=== PATIENT | female | born 1960 | race Caucasian/White ===

== ENCOUNTER 2017-10-10 15:46 | Inpatient (IN) | payer MEDICARE, OTHER ==
[2017-10-10] MEDS ORDERED: 0.9 % SOD CHL for STERILE FIELD 10 ML DISP.SYRIN. (16:11)
[2017-10-10] MEDS: HYDROcodone/APAP 5/325MG 1 TAB TABLET PO (16:13)
[2017-10-10 16:25] LABS: ADD MAN DIFF? NO
[2017-10-10 16:28] LABS: BASO % 1 % (0-3); EOS # 0.2 x10^3/uL (0.0-0.7); EOS % 2 % (0-3); HEMOGLOBIN 12.8 g/dL (12.0-15.5); LYMPH # 1.7 x10^3/uL (1.0-4.8); LYMPH % 24 % (24-48); MEAN CORPUSCULAR HEMOGLOBIN 33 pg (25-35); MEAN CORPUSCULAR HGB CONC 35 g/dL (31-37); MEAN CORPUSCULAR VOLUME 94 fL (79-100); MONO # 0.8 x10^3/uL (0.0-1.1); MONO % 10 % (0-9); NEUT # 4.6 x10^3uL (1.8-7.7); NEUT % 63 % (31-73); PLATELET COUNT 269 x10^3/uL (140-400); RED BLOOD COUNT 3.93 x10^6/uL (3.50-5.40); RED CELL DISTRIBUTION WIDTH 13.9 % (11.5-14.5); WHITE BLOOD COUNT 7.3 x10^3/uL (4.0-11.0)
[2017-10-10] MEDS: PROMETHAZINE 12.5 MG in IV NORMAL SALINE 50ML 50 ML IV (16:35)
[2017-10-10 16:43] LABS: PARTIAL THROMBOPLASTIN TIME 25 SEC (24-38); PROTHROMBIN TIME PATIENT 12.2 SEC (11.7-14.0)
[2017-10-10] MEDS: IPRATRPIUM/ALBUTEROL 0.5/2.5MG 3 ML NEBU. NEB (16:48)
[2017-10-10 16:53] LABS: ANION GAP 7 (6-14); BLOOD UREA NITROGEN 14 mg/dL (7-20); BUN/CREATININE RATIO 14 (6-20); CALCIUM 9.5 mg/dL (8.5-10.1); CARBON DIOXIDE 32 mmol/L (21-32); CHLORIDE 98 mmol/L (98-107); GFR 56.9; GLUCOSE 159 mg/dL (70-99); POTASSIUM 4.1 mmol/L (3.5-5.1); SODIUM 137 mmol/L (136-145)
[2017-10-10 16:59] LABS: ALBUMIN 3.3 g/dL (3.4-5.0); ALBUMIN/GLOBULIN RATIO 0.9 (1.0-1.7); ALK PHOS 85 U/L (46-116); ALT (SGPT) 28 U/L (14-59); AST (SGOT) 24 U/L (15-37); LIPASE 134 U/L (73-393); TOTAL BILIRUBIN 0.3 mg/dL (0.2-1.0); TOTAL PROTEIN 6.9 g/dL (6.4-8.2)
[2017-10-10 17:02] LABS: TROPONINI < 0.017 ng/mL (0.000-0.055)
[2017-10-10] MEDS: MORPHINE SULFATE 10 MG/ML VIAL. IV (17:52)
[2017-10-10] MEDS: MORPHINE SULFATE 4 MG/ML DISP.SYRIN. IV ×2 (18:58→22:51)
[2017-10-10 20:42] LABS: TROPONINI < 0.017 ng/mL (0.000-0.055)
[2017-10-10] MEDS ORDERED: ALPRAZolam 1 MG TABLET PO (23:00)
[2017-10-10] MEDS ORDERED: NON FORMULARY ITEM (Albuterol Sulfate (Proair Respiclick) 1 PUFF) IH (23:00)
[2017-10-10] MEDS ORDERED: ACETAMINOPHEN 325 MG TABLET. PO (23:00)
[2017-10-10] MEDS ORDERED: NON FORMULARY ITEM (Melatonin 3 MG) PO (23:00)
[2017-10-11] MEDS ORDERED: PROMETHAZINE 25 MG in IV DEXTROSE 5% 50 ML IV (00:15)
[2017-10-11 00:16] LABS: TROPONINI < 0.017 ng/mL (0.000-0.055)
[2017-10-11] MEDS ORDERED: guaiFENesin DM 200MG/20MG 10 ML SYRUP PO (00:30)
[2017-10-11] MEDS ORDERED: MAG HYDROX/ALUMINUM HYD/SIMETH 30 ML ORAL.SUSP PO (00:30)
[2017-10-11] MEDS: PROMETHAZINE 25 MG SUPP.RECT. PR ×2 (00:59→11:26)
[2017-10-11] MEDS: MORPHINE SULFATE 4 MG/ML DISP.SYRIN. IV ×3 (00:59→12:59)
[2017-10-11] MEDS: lamoTRIgine 100 MG TABLET. PO ×2 (01:49→13:49)
[2017-10-11] MEDS: PRAZOSIN 1 MG CAPSULE. PO (01:49)
[2017-10-11] MEDS: traZODone 100 MG TABLET. PO (01:49)
[2017-10-11] MEDS: DOCUSATE SODIUM 100 MG CAPSULE. PO (01:50)
[2017-10-11] MEDS: DULoxetine HCL 30 MG CAPSULE.DR PO (01:50)
[2017-10-11] MEDS: SENNOSIDES/DOCUSATE 8.6/50MG TABLET. PO ×2 (01:50→09:00)
[2017-10-11] MEDS: GABAPENTIN 400 MG CAPSULE. PO ×3 (01:50→13:49)
[2017-10-11] MEDS: MECLIZINE HCL 12.5 MG TABLET. PO (01:50)
[2017-10-11] MEDS: LURASIDONE 40 MG TABLET. PO ×2 (01:51→13:49)
[2017-10-11] MEDS ORDERED: DEXTROSE 50% 25 GM / 50ML DISP.SYRIN. IV ×2 (04:15→09:15)
[2017-10-11 06:22] LABS: ADD MAN DIFF? NO
[2017-10-11 06:43] LABS: ANION GAP 9 (6-14); BLOOD UREA NITROGEN 15 mg/dL (7-20); CALCIUM 8.9 mg/dL (8.5-10.1); CARBON DIOXIDE 30 mmol/L (21-32); CHLORIDE 100 mmol/L (98-107); CREATININE 0.9 mg/dL (0.6-1.0); GFR 64.3; GLUCOSE 136 mg/dL (70-99); POTASSIUM 4.3 mmol/L (3.5-5.1); SODIUM 139 mmol/L (136-145)
[2017-10-11 06:58] LABS: BASO % 1 % (0-3); EOS # 0.2 x10^3/uL (0.0-0.7); EOS % 3 % (0-3); HEMATOCRIT 39.1 % (36.0-47.0); HEMOGLOBIN 12.8 g/dL (12.0-15.5); LYMPH # 2.1 x10^3/uL (1.0-4.8); LYMPH % 34 % (24-48); MEAN CORPUSCULAR HEMOGLOBIN 32 pg (25-35); MEAN CORPUSCULAR HGB CONC 33 g/dL (31-37); MEAN CORPUSCULAR VOLUME 97 fL (79-100); MONO # 0.7 x10^3/uL (0.0-1.1); MONO % 11 % (0-9); NEUT # 3.2 x10^3uL (1.8-7.7); NEUT % 51 % (31-73); PLATELET COUNT 232 x10^3/uL (140-400); RED BLOOD COUNT 4.04 x10^6/uL (3.50-5.40); RED CELL DISTRIBUTION WIDTH 14.1 % (11.5-14.5); WHITE BLOOD COUNT 6.3 x10^3/uL (4.0-11.0)
[2017-10-11] MEDS: ALBUTEROL SULFATE 2.5 MG/3 ML NEBU. NEB (07:30)
[2017-10-11] MEDS: CALCIUM CARB/VIT D3 500/200 TABLET. PO (08:00)
[2017-10-11] MEDS: POTASSIUM CHLORIDE 20 MEQ TABLET.ER. PO (08:00)
[2017-10-11] MEDS: metFORMIN 500 MG TABLET PO (08:00)
[2017-10-11] MEDS: LEVOTHYROXINE 75 MCG TABLET PO (08:03)
[2017-10-11] MEDS: traMADol 50 MG TABLET PO (08:04)
[2017-10-11] MEDS: ALPRAZolam 0.5 MG TABLET PO ×2 (08:04→11:31)
[2017-10-11 08:23] LABS: POC GLUCOSE 127 mg/dL (70-99)
[2017-10-11] MEDS: LISINOPRIL 5 MG TABLET. PO (09:00)
[2017-10-11] MEDS: POLYETHYLENE GLYCOL 3350 17 GM PACKET. PO (09:00)
[2017-10-11] MEDS: FUROSEMIDE 80 MG TABLET. PO (09:00)
[2017-10-11] MEDS: FLUTICASONE 50MCG/NASAL SPRAY 16GM BOTTLE. NS (09:00)
[2017-10-11] MEDS ORDERED: PRAZOSIN 1 MG CAPSULE. PO (09:00)
[2017-10-11] MEDS: CETIRIZINE HCL 10 MG TABLET. PO (09:00)
[2017-10-11] MEDS: FERROUS SULFATE 325 MG TABLET. PO (09:00)
[2017-10-11] MEDS: REGADENOSON 0.4 MG/5 ML DISP.SYRIN. IV (10:46)
[2017-10-11 10:52] LABS: NT-PRO BNP 71 pg/mL (0-124)
[2017-10-11 11:09] LABS: CHOLESTEROL 198 mg/dL (0-200); HDLC 76 mg/dL (40-60); LDLC 69 mg/dL (0-100); NON-HDL CHOLESTEROL 122 mg/dL (0-129); TRIGLYCERIDES 266 mg/dL (0-150); VLDLC 53 mg/dL (0-40)
[2017-10-11 11:10] LABS: CHOLESTEROL/HDL RATIO 2.6
[2017-10-11 11:31] LABS: THYROID STIM HORMONE (TSH) 6.415 uIU/mL (0.358-3.74)
[2017-10-11] MEDS: INSULIN ASPART 300 UNITS/3 ML INSULN.PEN SQ ×2 (12:00→17:00)
[2017-10-11] MEDS: buPROPion XL 150 MG TAB.ER.24H. PO (13:00)
[2017-10-11] MEDS: MELOXICAM 7.5 MG TABLET PO (13:00)
[2017-10-11] MEDS: ASPIRIN ENTERIC COATED 81 MG TABLET.DR. PO (13:00)
[2017-10-11] MEDS: ARIPiprazole 5 MG TABLET PO (13:49)
[2017-10-11] MEDS: HEPARIN PF 500 UNIT/5 ML DISP.SYRIN. IV (15:12)
[2017-10-11 16:39] LABS: POC GLUCOSE 144 mg/dL (70-99)
[2017-10-11 22:10] LABS: POC GLUCOSE 112 mg/dL (70-99)
== END 2017-10-11 18:49 | disposition home or self-care (01) | DRG 194 ==
LOC: ER 15:46 → ED HOLD 16:12 → 5 NORTH 21:00
DX: R09.1 Pleurisy (principal); K56.609 Unspecified intestinal obstruction, unspecified as to partial versus complete obstruction; I50.32 Chronic diastolic (congestive) heart failure; I11.0 Hypertensive heart disease with heart failure; R07.89 Other chest pain; J45.909 Unspecified asthma, uncomplicated; E11.9 Type 2 diabetes mellitus without complications; F31.9 Bipolar disorder, unspecified; F43.10 Post-traumatic stress disorder, unspecified; G47.33 Obstructive sleep apnea (adult) (pediatric); M19.90 Unspecified osteoarthritis, unspecified site; M10.9 Gout, unspecified; E03.9 Hypothyroidism, unspecified; F17.210 Nicotine dependence, cigarettes, uncomplicated; E66.9 Obesity, unspecified; Z90.710 Acquired absence of both cervix and uterus; Z88.1 Allergy status to other antibiotic agents; Z91.041 Radiographic dye allergy status; Z88.5 Allergy status to narcotic agent; Z88.0 Allergy status to penicillin; Z91.013 Allergy to seafood; Z88.8 Allergy status to other drugs, medicaments and biological substances; Z91.018 Allergy to other foods; Z90.5 Acquired absence of kidney; Z83.3 Family history of diabetes mellitus; Z85.528 Personal history of other malignant neoplasm of kidney; Z82.49 Family history of ischemic heart disease and other diseases of the circulatory system; Z79.1 Long term (current) use of non-steroidal anti-inflammatories (NSAID); Z79.84 Long term (current) use of oral hypoglycemic drugs; Z79.899 Other long term (current) drug therapy
CPT/HCPCS: 36415; 71045; 78452; 80048; 80053; 80061; 82962; 83690; 83735; 83880; 84443; 84484; 85025; 85610; 85730; 93005; 93017; 94640; 94760; 96365; 96374; 96375; 99285; 99285-25; A9500; J1815; J2270; J2550; J2785; J7613; J7620; J8597

== ENCOUNTER 2017-11-28 12:26 | Inpatient (IN) | payer MEDICARE, OTHER ==
[2017-11-28] MEDS: ASPIRIN CHEWABLE 81 MG TABLET. PO (12:35)
[2017-11-28] MEDS ORDERED: IODIXANOL 320 MG/ML 100 ML VIAL. ×2 (12:45→12:48)
[2017-11-28] MEDS ORDERED: 0.9 % SODIUM CHLORIDE 10 ML DISP.SYRIN. IV (12:45)
[2017-11-28] MEDS: FAMOTIDINE 20 MG/2 ML VIAL IVP (12:45)
[2017-11-28] MEDS ORDERED: LIDOCAINE 2% 20 ML VIAL. (12:45)
[2017-11-28] MEDS ORDERED: NITROGLYCERIN SUBLINGUAL 0.4 MG BOTTLE OF 25. SL (12:45)
[2017-11-28] MEDS: diphenhydrAMINE 50 MG/ML VIAL IVP (12:45)
[2017-11-28] MEDS ORDERED: methylPREDNISolone SOD SUCC PF 125 MG/2 ML VIAL. (12:46)
[2017-11-28] MEDS ORDERED: FAMOTIDINE 20 MG/2 ML VIAL (12:47)
[2017-11-28] MEDS ORDERED: diphenhydrAMINE 50 MG/ML VIAL (12:47)
[2017-11-28] MEDS ORDERED: MIDAZOLAM HCL/PF 2 MG/2 ML VIAL. (12:48)
[2017-11-28] MEDS: IV NORMAL SALINE 1000ML BAG 1,000 ML IV ×3 (12:51→20:58)
[2017-11-28 12:54] LABS: ADD MAN DIFF? NO
[2017-11-28] MEDS: MORPHINE SULFATE 4 MG/ML DISP.SYRIN. IV/SQ (12:54)
[2017-11-28] MEDS ORDERED: NITROGLYCERIN 200 MCG/2 ML SYRINGE FOR CATH/VASC LAB. (12:55)
[2017-11-28] MEDS ORDERED: VERAPAMIL 5 MG/2 ML VIAL. (12:55)
[2017-11-28] MEDS ORDERED: HEPARIN for IV BOLUS 10,000 UNIT/10 ML VIAL. (12:55)
[2017-11-28 12:57] LABS: BASO # 0.1 x10^3/uL (0.0-0.2); BASO % 1 % (0-3); EOS # 0.2 x10^3/uL (0.0-0.7); EOS % 2 % (0-3); HEMATOCRIT 40.2 % (36.0-47.0); HEMOGLOBIN 13.5 g/dL (12.0-15.5); LYMPH # 2.3 x10^3/uL (1.0-4.8); LYMPH % 28 % (24-48); MEAN CORPUSCULAR HEMOGLOBIN 31 pg (25-35); MEAN CORPUSCULAR HGB CONC 34 g/dL (31-37); MEAN CORPUSCULAR VOLUME 93 fL (79-100); MONO # 0.8 x10^3/uL (0.0-1.1); MONO % 9 % (0-9); NEUT % 61 % (31-73); PLATELET COUNT 253 x10^3/uL (140-400); RED BLOOD COUNT 4.31 x10^6/uL (3.50-5.40); RED CELL DISTRIBUTION WIDTH 13.9 % (11.5-14.5); WHITE BLOOD COUNT 8.3 x10^3/uL (4.0-11.0)
[2017-11-28] MEDS ORDERED: BIVALIRUDIN 250 MG VIAL. IV (13:08)
[2017-11-28 13:18] LABS: D-DIMER 0.37 ug/mlFEU (0.00-0.50)
[2017-11-28 13:18] LABS: ANION GAP 9 (6-14); BLOOD UREA NITROGEN 20 mg/dL (7-20); CALCIUM 9.1 mg/dL (8.5-10.1); CARBON DIOXIDE 31 mmol/L (21-32); CHLORIDE 100 mmol/L (98-107); CREATININE 1.1 mg/dL (0.6-1.0); GLUCOSE 100 mg/dL (70-99); POTASSIUM 4.1 mmol/L (3.5-5.1); SODIUM 140 mmol/L (136-145)
[2017-11-28 13:21] LABS: TROPONINI < 0.017 ng/mL (0.000-0.055)
[2017-11-28 13:22] LABS: ALBUMIN 3.5 g/dL (3.4-5.0); ALK PHOS 106 U/L (46-116); ALT (SGPT) 31 U/L (14-59); AST (SGOT) 19 U/L (15-37); DIRECT BILIRUBIN < 0.1 mg/dL (0.0-0.2); LIPASE 153 U/L (73-393); MAGNESIUM 1.9 mg/dL (1.8-2.4); TOTAL BILIRUBIN 0.6 mg/dL (0.2-1.0); TOTAL PROTEIN 6.7 g/dL (6.4-8.2)
[2017-11-28 13:25] LABS: THYROID STIM HORMONE (TSH) 1.956 uIU/mL (0.358-3.74)
[2017-11-28] MEDS: HEPARIN for IV BOLUS 10,000 UNIT/10 ML VIAL. IART (13:30)
[2017-11-28] MEDS ORDERED: CONTRAST GIVEN MC (13:30)
[2017-11-28] MEDS: NITROGLYCERIN 200 MCG/2 ML SYRINGE FOR CATH/VASC LAB. IART (13:30)
[2017-11-28] MEDS: MIDAZOLAM HCL/PF 2 MG/2 ML VIAL. IV (13:30)
[2017-11-28] MEDS: LIDOCAINE 2% 20 ML VIAL. IJ (13:30)
[2017-11-28] MEDS: methylPREDNISolone SOD SUCC PF 125 MG/2 ML VIAL. IV (13:30)
[2017-11-28] MEDS: VERAPAMIL 5 MG/2 ML VIAL. IART (13:30)
[2017-11-28] MEDS: IODIXANOL 320 MG/ML 100 ML VIAL. IART (13:30)
[2017-11-28 13:44] LABS: NT-PRO BNP 41 pg/mL (0-124)
[2017-11-28 13:44] LABS: CKMB MASS 0.8 ng/mL (0.0-3.6); CREATINE KINASE 74 U/L (26-192)
[2017-11-28] MEDS ORDERED: hydrALAZINE 20 MG/ML VIAL. IVP (14:00)
[2017-11-28] MEDS: MORPHINE SULFATE 4 MG/ML DISP.SYRIN. IV (15:11)
[2017-11-28] MEDS ORDERED: MENTHOL MM (16:15)
[2017-11-28] MEDS ORDERED: BENZOCAINE TP (16:15)
[2017-11-28] MEDS ORDERED: NON FORMULARY ITEM (Albuterol Sulfate (Proair Respiclick) 1 PUFF) IH (16:15)
[2017-11-28] MEDS ORDERED: PROMETH/CODEINE 6.25/10MG 5 ML SYRUP. PO (16:15)
[2017-11-28] MEDS ORDERED: EUCALYPTUS MM (16:15)
[2017-11-28] MEDS ORDERED: NON FORMULARY ITEM (Melatonin 3 MG) PO (16:15)
[2017-11-28] MEDS ORDERED: RESORCINOL TP (16:15)
[2017-11-28] MEDS ORDERED: ACETAMINOPHEN 325 MG TABLET. PO (16:15)
[2017-11-28] MEDS ORDERED: HYPROMELLOSE OP (16:15)
[2017-11-28] MEDS ORDERED: GLYCERIN OP (16:15)
[2017-11-28] MEDS ORDERED: NON FORMULARY ITEM (Mg Trisilicate/Alh/Nahco3/Aa (Gaviscon 80-14.2 Mg Tab Chew) 1 EACH) PO (16:15)
[2017-11-28] MEDS ORDERED: NON FORMULARY ITEM (Menthol (Biofreeze) 1 APP) TP (16:15)
[2017-11-28] MEDS ORDERED: traMADol 50 MG TABLET PO (16:15)
[2017-11-28] MEDS ORDERED: PEG OP (16:15)
[2017-11-28] MEDS ORDERED: guaiFENesin DM 200MG/20MG 10 ML SYRUP PO (16:30)
[2017-11-28] MEDS ORDERED: POLYVINYL ALCOHOL 1.4% OPHTH SOLUTION 15ML BOTTLE. OU (16:30)
[2017-11-28] MEDS: GABAPENTIN 400 MG CAPSULE. PO ×2 (17:26→20:25)
[2017-11-28] MEDS: ALPRAZolam 1 MG TABLET PO (17:26)
[2017-11-28 17:31] LABS: POC GLUCOSE 190 mg/dL (70-99)
[2017-11-28] MEDS: ALBUTEROL SULFATE 2.5 MG/3 ML NEBU. NEB (18:27)
[2017-11-28 20:21] LABS: POC GLUCOSE 250 mg/dL (70-99)
[2017-11-28] MEDS: lamoTRIgine 100 MG TABLET. PO (20:24)
[2017-11-28] MEDS: MECLIZINE HCL 12.5 MG TABLET. PO (20:25)
[2017-11-28] MEDS: DOCUSATE SODIUM 100 MG CAPSULE. PO (20:26)
[2017-11-28] MEDS: SENNOSIDES/DOCUSATE 8.6/50MG TABLET. PO (20:26)
[2017-11-28] MEDS: DULoxetine HCL 30 MG CAPSULE.DR PO (20:26)
[2017-11-28] MEDS: traZODone 100 MG TABLET. PO (20:26)
[2017-11-28] MEDS: PRAZOSIN 1 MG CAPSULE. PO (20:26)
[2017-11-28] MEDS: LURASIDONE 40 MG TABLET. PO (20:26)
[2017-11-29] MEDS: MORPHINE SULFATE 4 MG/ML DISP.SYRIN. IV ×3 (00:36→09:38)
[2017-11-29] MEDS: IV NORMAL SALINE 1000ML BAG 1,000 ML IV (04:29)
[2017-11-29] MEDS: LEVOTHYROXINE 75 MCG TABLET PO (06:14)
[2017-11-29] MEDS: FERROUS SULFATE 325 MG TABLET. PO (08:33)
[2017-11-29] MEDS: ARIPiprazole 5 MG TABLET PO (08:33)
[2017-11-29] MEDS: POTASSIUM CHLORIDE 20 MEQ TABLET.ER. PO (08:33)
[2017-11-29] MEDS: CALCIUM CARBONATE 500 MG TABLET PO (08:33)
[2017-11-29] MEDS: GABAPENTIN 400 MG CAPSULE. PO ×2 (08:33→14:07)
[2017-11-29] MEDS: SENNOSIDES/DOCUSATE 8.6/50MG TABLET. PO (08:33)
[2017-11-29] MEDS: ALPRAZolam 0.5 MG TABLET PO ×2 (08:34→13:36)
[2017-11-29] MEDS: lamoTRIgine 100 MG TABLET. PO (08:34)
[2017-11-29] MEDS: LISINOPRIL 5 MG TABLET. PO (08:34)
[2017-11-29] MEDS: CETIRIZINE HCL 10 MG TABLET. PO (08:34)
[2017-11-29] MEDS: LURASIDONE 40 MG TABLET. PO (08:34)
[2017-11-29] MEDS: buPROPion XL 150 MG TAB.ER.24H. PO (08:34)
[2017-11-29] MEDS: FUROSEMIDE 80 MG TABLET. PO (08:34)
[2017-11-29] MEDS: POLYETHYLENE GLYCOL 3350 17 GM PACKET. PO (08:36)
[2017-11-29 08:38] LABS: POC GLUCOSE 138 mg/dL (70-99)
[2017-11-29] MEDS ORDERED: PRAZOSIN 1 MG CAPSULE. PO (09:00)
[2017-11-29] MEDS: FLUTICASONE 50MCG/NASAL SPRAY 16GM BOTTLE. NS (09:37)
[2017-11-29 11:58] LABS: POC GLUCOSE 166 mg/dL (70-99)
[2017-11-29] MEDS ORDERED: HYDROcodone/APAP 5/325MG 1 TAB TABLET PO (14:30)
== END 2017-11-29 18:31 | disposition home or self-care (01) | DRG 287 ==
LOC: ER 12:26 → 2 NORTH 13:39
PROC: 4A023N7 Measurement of Cardiac Sampling and Pressure, Left Heart, Percutaneous Approach (ICD-10-PCS; principal; 2017-11-28)
PROC: B2111ZZ Fluoroscopy of Multiple Coronary Arteries using Low Osmolar Contrast (ICD-10-PCS; 2017-11-28)
PROC: B2151ZZ Fluoroscopy of Left Heart using Low Osmolar Contrast (ICD-10-PCS; 2017-11-28)
DX: I20.0 Unstable angina (principal); I11.0 Hypertensive heart disease with heart failure; E66.01 Morbid (severe) obesity due to excess calories; I50.9 Heart failure, unspecified; D50.9 Iron deficiency anemia, unspecified; E11.9 Type 2 diabetes mellitus without complications; E03.9 Hypothyroidism, unspecified; Z68.42 Body mass index [BMI] 45.0-49.9, adult; R07.89 Other chest pain; M10.9 Gout, unspecified; E78.5 Hyperlipidemia, unspecified; F43.10 Post-traumatic stress disorder, unspecified; F32.9 Major depressive disorder, single episode, unspecified; J45.909 Unspecified asthma, uncomplicated; Z72.0 Tobacco use; Z82.49 Family history of ischemic heart disease and other diseases of the circulatory system; Z88.0 Allergy status to penicillin; Z90.710 Acquired absence of both cervix and uterus; Z87.01 Personal history of pneumonia (recurrent); Z88.6 Allergy status to analgesic agent; Z88.1 Allergy status to other antibiotic agents; Z91.013 Allergy to seafood; Z88.2 Allergy status to sulfonamides; Z88.8 Allergy status to other drugs, medicaments and biological substances; Z91.048 Other nonmedicinal substance allergy status
CPT/HCPCS: 36415; 71045; 73030; 80048; 80076; 82553; 82962; 83690; 83735; 83880; 84443; 84484; 85025; 85379; 93005; 93458; 94660; 96361; 96374; 96375; 99285; 99285-25; C1769; C1892; J1200; J1644; J2060; J2250; J2270; J2930; J3490; J7030; J7613; J8597; S0028

== ENCOUNTER 2018-01-08 14:46 | Inpatient (IN) | payer MEDICARE, OTHER ==
[2018-01-08] MEDS: IPRATRPIUM/ALBUTEROL 0.5/2.5MG 3 ML NEBU. NEB ×2 (15:26→19:58)
[2018-01-08] MEDS: diphenhydrAMINE 50 MG/ML VIAL IM (15:30)
[2018-01-08] MEDS: IV NORMAL SALINE 500ML BAG 500 ML IV (15:44)
[2018-01-08] MEDS: methylPREDNISolone SOD SUCC PF 125 MG/2 ML VIAL. IV (15:45)
[2018-01-08] MEDS: MORPHINE SULFATE 4 MG/ML DISP.SYRIN. IV (15:45)
[2018-01-08] MEDS: diphenhydrAMINE 50 MG/ML VIAL IVP ×2 (15:49→19:55)
[2018-01-08 17:15] LABS: ADD MAN DIFF? NO
[2018-01-08 17:20] LABS: BASO % 1 % (0-3); EOS # 0.2 x10^3/uL (0.0-0.7); EOS % 2 % (0-3); HEMATOCRIT 39.1 % (36.0-47.0); HEMOGLOBIN 13.3 g/dL (12.0-15.5); LYMPH % 35 % (24-48); MEAN CORPUSCULAR HEMOGLOBIN 32 pg (25-35); MEAN CORPUSCULAR HGB CONC 34 g/dL (31-37); MEAN CORPUSCULAR VOLUME 93 fL (79-100); MONO % 12 % (0-9); NEUT # 4.3 x10^3uL (1.8-7.7); NEUT % 51 % (31-73); PLATELET COUNT 283 x10^3/uL (140-400); RED BLOOD COUNT 4.21 x10^6/uL (3.50-5.40); RED CELL DISTRIBUTION WIDTH 13.9 % (11.5-14.5); WHITE BLOOD COUNT 8.5 x10^3/uL (4.0-11.0)
[2018-01-08 17:32] LABS: ANION GAP 10 (6-14); BLOOD UREA NITROGEN 20 mg/dL (7-20); CALCIUM 9.3 mg/dL (8.5-10.1); CARBON DIOXIDE 29 mmol/L (21-32); CHLORIDE 98 mmol/L (98-107); GFR 56.9; GLUCOSE 160 mg/dL (70-99); POTASSIUM 3.9 mmol/L (3.5-5.1); SODIUM 137 mmol/L (136-145)
[2018-01-08] MEDS ORDERED: MORPHINE SULFATE 4 MG/ML DISP.SYRIN. IV (17:45)
[2018-01-08] MEDS ORDERED: ACETAMINOPHEN 325 MG TABLET. PO ×2 (17:45→20:30)
[2018-01-08] MEDS: FAMOTIDINE 20 MG/2 ML VIAL IVP (19:54)
[2018-01-08] MEDS ORDERED: GLYCERIN OP (20:30)
[2018-01-08] MEDS ORDERED: PEG OP (20:30)
[2018-01-08] MEDS ORDERED: HYPROMELLOSE OP (20:30)
[2018-01-08] MEDS ORDERED: PRAZOSIN 1 MG CAPSULE. PO (20:30)
[2018-01-08] MEDS ORDERED: SIMETHICONE 80 MG TAB.CHEW PO (20:30)
[2018-01-08] MEDS ORDERED: RESORCINOL TP (20:30)
[2018-01-08] MEDS ORDERED: ZOLPIDEM 5 MG TABLET. PO (20:30)
[2018-01-08] MEDS ORDERED: BENZOCAINE TP (20:30)
[2018-01-08] MEDS ORDERED: NON FORMULARY ITEM (Albuterol Sulfate (Proair Respiclick) 1 PUFF) IH (20:30)
[2018-01-08] MEDS: LURASIDONE 40 MG TABLET. PO (21:14)
[2018-01-08] MEDS: LORazepam 0.5 MG TABLET PO (21:14)
[2018-01-08] MEDS: SENNOSIDES/DOCUSATE 8.6/50MG TABLET. PO (21:15)
[2018-01-08] MEDS: DULoxetine HCL 30 MG CAPSULE.DR PO (21:15)
[2018-01-08] MEDS: GABAPENTIN 400 MG CAPSULE. PO (21:15)
[2018-01-08] MEDS: DOCUSATE SODIUM 100 MG CAPSULE. PO (21:21)
[2018-01-08] MEDS ORDERED: DEXTRAN OU (21:30)
[2018-01-08] MEDS ORDERED: HYPROMELLOSE OU (21:30)
[2018-01-08] MEDS ORDERED: POLYVINYL ALCOHOL 1.4% OPHTH SOLUTION 15ML BOTTLE. OU (21:30)
[2018-01-08] MEDS ORDERED: METHYL SALICYLATE/MENTHOL TOPICAL OINTMENT 29GM TUBE. TP (21:30)
[2018-01-08] MEDS: clonazePAM 1 MG TABLET PO (22:29)
[2018-01-08] MEDS: MECLIZINE HCL 12.5 MG TABLET. PO (22:29)
[2018-01-08] MEDS: traZODone 100 MG TABLET. PO (22:29)
[2018-01-08] MEDS: metFORMIN 500 MG TABLET PO (22:29)
[2018-01-08] MEDS: lamoTRIgine 100 MG TABLET. PO (22:30)
[2018-01-08] MEDS: HYDROcodone/APAP 5/325MG 1 TAB TABLET PO (22:32)
[2018-01-08] MEDS: PRAZOSIN 1 MG CAPSULE. PO (22:33)
[2018-01-09] MEDS: traMADol 50 MG TABLET PO (01:30)
[2018-01-09] MEDS: guaiFENesin DM 200MG/20MG 10 ML SYRUP PO (03:46)
[2018-01-09] MEDS: ALBUTEROL SULFATE 2.5 MG/3 ML NEBU. NEB (03:47)
[2018-01-09] MEDS: LEVOTHYROXINE 75 MCG TABLET PO (06:10)
[2018-01-09 07:41] LABS: POC GLUCOSE 224 mg/dL (70-99)
[2018-01-09] MEDS: IPRATRPIUM/ALBUTEROL 0.5/2.5MG 3 ML NEBU. NEB ×2 (08:07→12:01)
[2018-01-09] MEDS: buPROPion XL 150 MG TAB.ER.24H. PO (08:59)
[2018-01-09] MEDS: LURASIDONE 40 MG TABLET. PO (08:59)
[2018-01-09] MEDS: metFORMIN 500 MG TABLET PO (08:59)
[2018-01-09] MEDS: SENNOSIDES/DOCUSATE 8.6/50MG TABLET. PO (08:59)
[2018-01-09] MEDS: CALCIUM CARB/VIT D3 500/200 TABLET. PO (08:59)
[2018-01-09] MEDS: CETIRIZINE HCL 10 MG TABLET. PO (09:00)
[2018-01-09] MEDS: LISINOPRIL 5 MG TABLET. PO (09:00)
[2018-01-09] MEDS: FERROUS SULFATE 325 MG TABLET. PO (09:00)
[2018-01-09] MEDS: POLYETHYLENE GLYCOL 3350 17 GM PACKET. PO (09:00)
[2018-01-09] MEDS: ALPRAZolam 0.5 MG TABLET PO ×2 (09:01→12:38)
[2018-01-09] MEDS: methylPREDNISolone 4 MG TABLET. PO ×2 (09:01→12:38)
[2018-01-09] MEDS: HYDROcodone/APAP 5/325MG 1 TAB TABLET PO (09:01)
[2018-01-09] MEDS: POTASSIUM CHLORIDE 20 MEQ TABLET.ER. PO (09:01)
[2018-01-09] MEDS: MELOXICAM 7.5 MG TABLET PO (09:02)
[2018-01-09] MEDS: ARIPiprazole 5 MG TABLET PO (09:02)
[2018-01-09] MEDS: FAMOTIDINE 20 MG/2 ML VIAL IVP (09:02)
[2018-01-09] MEDS: FUROSEMIDE 80 MG TABLET. PO (09:02)
[2018-01-09] MEDS: FLUTICASONE 50MCG/NASAL SPRAY 16GM BOTTLE. NS (09:03)
[2018-01-09] MEDS: BENZOCAINE/MENTHOL LOZENGE. MM (09:12)
[2018-01-09] MEDS: diphenhydrAMINE 50 MG/ML VIAL IVP (09:12)
[2018-01-09] MEDS: lamoTRIgine 100 MG TABLET. PO (10:18)
[2018-01-09 11:49] LABS: POC GLUCOSE 247 mg/dL (70-99)
[2018-01-09] MEDS ORDERED: ALPRAZolam 1 MG TABLET PO (16:00)
[2018-01-10] MEDS ORDERED: methylPREDNISolone 4 MG TABLET. PO ×2 (08:30→21:00)
[2018-01-11] MEDS ORDERED: methylPREDNISolone 4 MG TABLET. PO (09:00)
[2018-01-12] MEDS ORDERED: methylPREDNISolone 4 MG TABLET. PO (09:00)
[2018-01-13] MEDS ORDERED: methylPREDNISolone 4 MG TABLET. PO (09:00)
[2018-01-14] MEDS ORDERED: methylPREDNISolone 4 MG TABLET. PO (09:00)
== END 2018-01-09 13:50 | disposition home or self-care (01) | DRG 923 ==
LOC: ER 14:46 → 6 SOUTH 17:10
DX: T78.1XXA Other adverse food reactions, not elsewhere classified, initial encounter (principal); D49.519 Neoplasm of unspecified behavior of unspecified kidney; D64.9 Anemia, unspecified; E11.9 Type 2 diabetes mellitus without complications; F31.9 Bipolar disorder, unspecified; X58.XXXA Exposure to other specified factors, initial encounter; F43.10 Post-traumatic stress disorder, unspecified; I10 Essential (primary) hypertension; J45.909 Unspecified asthma, uncomplicated; Z83.3 Family history of diabetes mellitus; Z90.49 Acquired absence of other specified parts of digestive tract; Z90.710 Acquired absence of both cervix and uterus; Z91.018 Allergy to other foods
CPT/HCPCS: 36415; 71045; 80048; 82962; 84484; 85025; 93005; 94640; 96361; 96374; 96375; 99285; 99285-25; J1200; J2270; J2930; J7040; J7509; J7613; J7620; J8597; S0028